=== PATIENT | male | born 1985 | race Two or more races ===

== ENCOUNTER 2025-04-04 19:52 | Emergency (ER) | payer MEDICAID, SELFPAY ==
[2025-04-04 19:53] VITALS: BMI 34.7
[2025-04-04 20:23] VITALS: BP 146/90; PULSE 98; RESP 18; TEMP 36.7; O2SAT 99
--- NOTE | 2025-04-04 20:47 | EDNOTE_ITS ---
ED Abdominal Pain RME/HPI General Chief Complaint: Abdominal Pain Stated complaint: ABD PAIN RADIATES TO BACK [id number] Time seen by provider: 04/04/25 20:05 Arrival date/time: 04/04/25 19:52 Source: patient, RN notes reviewed and old records reviewed Mode of arrival: ambulatory Limitations: no limitations RME / HPI RME / HPI narrative: 39yom presents to ED for 5-day history of epigastric pain. Patient reports binge drinking for approximately 1 week prior to symptom onset. Reports nausea but no vomiting. No fever, shortness of breath, chest pain, diarrhea, urinary symptoms or flank pain reported. Patient does endorse right lower back pain worse with sitting and ROM. No medications or treatments since symptom onset. Related Data Previous Rx's ?Medication ?Instructions ?Recorded ibuprofen 800 mg tablet 800 mg PO TID PRN pain #30 t abs 10/22/18 Allergies Allergy/AdvReac Type Severity Reaction Status Date / Time No Known Allergies Allergy Verified 10/22/18 16:57 Review of Systems Review of Systems Systems Reviewed: All systems reviewed, normal except as documented Constitutional Constitutional: Denies chills and Denies fever(s) Cardiovascular Cardiovascular: Denies chest pain and Denies dyspnea Respiratory Respiratory: Denies dyspnea Gastrointestinal Gastrointestinal: Reports abdominal pain, Denies loose stools, Reports nausea and Denies vomiting Genitourinary Genitourinary: Denies dysuria, Denies flank pain and Denies hematuria Musculoskeletal Musculoskeletal: Reports back pain Past Medical History Past Medical History GASTROINTESTINAL: Positive Obesity Surgical History OTHER SURGICAL HX: denies pshx Social History SMOKING STATUS: Current some day smoker SUBSTANCE USE: does not use ALCOHOL: Never ED Exam General Limitations: Present no limitations General appearance: Present alert and in no apparent distress Head Head exam: Present atraumatic and normocephalic Eye Eye exam: Present normal appearance, PERRL and EOMI ENT ENT exam: Present normal exam and mucous membranes moist Neck Neck exam: Present normal inspection and full ROM Chest Chest inspection: Present normal inspection and symmetric chest wall rise Respiratory Respiratory exam: Present normal lung sounds bilaterally; Absent respiratory distress Cardiovascular Cardiovascular exam: Present regular rate and normal rhythm Abdominal Exam Abdominal exam: Present soft and tenderness (Epigastric); Absent distention, guarding or rebound Extremities Exam Extremities exam: Present normal inspection and full ROM Back Exam Back exam: Present paraspinal tenderness (Right lumbar, mild); Absent CVA tenderness (R), CVA tenderness (L) or vertebral tenderness Neurological Exam Neurological exam: Present alert, oriented X3, normal gait and other (No saddle anesthesia); Absent motor sensory deficit Psychiatric Psychiatric exam: Present normal affect and normal mood Skin Skin exam: Present warm, dry, intact and normal color Course Quality Measures none Orders Category Date Time Status EKG (ED ONLY) *Do not use* NOW Care 04/04/25 20:46 Completed EKG (ED Only) Stat Exams 04/04/25 20:46 Ordered Famotidine [Pepcid] Med 04/04/25 20:46 Discontinued 40 mg PO X1 ONE Lidocaine 2% Viscous [Xylocaine 2% Viscous] Med 04/04/25 20:46 Discontinued 15 ml PO X1 ONE Ondansetron Odt [Zofran Odt] Med 04/04/25 20:46 Discontinued 4 mg PO X1 ONE mg Hyd/Al Hyd/Sushila Susp [Maalox Susp] Med 04/04/25 20:46 Discontinued 30 ml PO X1 ONE Vital Signs Vital signs: Vital Signs Temperature 98.1 F 04/04/25 20:23 Pulse Rate 98 04/04/25 20:23 Respiratory Rate 18 04/04/25 20:23 Blood Pressure 146/90 H 04/04/25 20:23 Pulse Oximetry (%) 99 04/04/25 20:23 Oxygen Delivery Method Room Air 04/04/25 20:23 Abdominal Pain MDM Patient data External records reviewed:: [facility] previous records (10/22/2018 ED visit for costochondritis) Clinical information provided by:: patient Social determinants that could affect healthcare access:: other (specify) (Poor access to healthcare) Patient has the following chronic illnesses:: Obesity How is presenting disease/condition affected by chronic disease/condition?: uneffected by Evaluation data The following diagnostics were reviewed and interpreted by me:: other (specify) (None) Lab and/or radiology exams considered but not ordered:: none Interpretation Summary: na Medications / Prescriptions Medications or Prescriptions considered but not ordered:: none Medication administrations:: Medication Administration History Discontinued Medications Al Hydrox/Mg Hydrox/Simethicone (Mg Hyd/Al Hyd/Sushila (Maalox Reg) Susp 30 Ml Udc) 30 ml PO X1 ONE Stop: 04/04/25 20:47 Last Admin: 04/04/25 21:13 Dose: Not Given Documented By: [email or web address] Non-Admin Reason: Patient Refused Famotidine (Famotidine 20 Mg Tablet) 40 mg PO X1 ONE Stop: 04/04/25 20:47 Last Admin: 04/04/25 21:13 Dose: Not Given Documented By: Non-Admin Reason: Patient Refused Lidocaine HCl (Lidocaine Viscous 2% 15 Ml Udc) 15 ml PO X1 ONE Stop: 04/04/25 20:47 Last Admin: 04/04/25 21:13 Dose: Not Given Documented By: [email or web address] Non-Admin Reason: Patient Refused Ondansetron HCl (Ondansetron Odt 4 Mg Tabrap) 4 mg PO X1 ONE; Protocol Stop: 04/04/25 20:47 Last Admin: 04/04/25 21:13 Dose: Not Given Documented By: Non-Admin Reason: Patient Refused none - patient left AMA prior to medication administration Consultations Consultation(s) initiated? (list below): No Diagnosis Differential diagnosis abdominal pain: other (Cholelithiasis, cholecystitis, alcohol induced gastritis, PUD, pancreatitis) Most likely diagnosis given after review of the tests above:: Epigastric abdominal pain Admission Indicated Admission indicated?: not indicated Admission Request Was there a request for admission?: No Disposition Plan Disposition Plan: other (specify) (AMA) Discharge Plan Plan Patient Disposition: Left Against Medical Advice Patient condition on transfer: Stable Prescriptions/Referrals Prescriptions/Med Rec: No Action ibuprofen 800 mg tablet 800 mg PO TID PRN (Reason: pain) Qty: 30 0RF Referrals: Temporary Provider,ED [Physician, Emergency Medicine] - In 1 week Problem List Clinical Impression: Epigastric abdominal pain Patient/Caregiver Discharge Instructions Print Language: Croatian DORENE Supervising Physician DORENE Supervising Physician: [place]
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
== END 2025-04-04 21:36 | disposition left against medical advice (07) ==
LOC: SERX 21:12
PROVIDERS: Emergency Provider Emergency Medicine
DX: R10.13 Epigastric pain (principal)
CPT/HCPCS: 80053; 83690; 84484; 85025; 99281